=== PATIENT | female | born 1995 | race Caucasian/White ===

== ENCOUNTER 2025-02-13 13:00 | Outpatient (RCR) | payer MEDICAID, SELFPAY ==
--- NOTE | 2025-01-19 14:22 | PTNOTE_ITS ---
PT OP Initial Eval Patient Information Outpatient Physical Therapy Treatment Date: 01/19/25 Visit Reasons: bilateral hip pain Medical Diagnosis: Bilateral Hip Pain Treatment Dx #1: Bilateral Hip Pain Start of Care: 01/19/25 Date of Onset: Age 17 Smoking Status Smoking Status: Never smoker Initial Assessment Subjective: Pt is a 29 y/o female reports of chronic bilateral hip pain (08/24). Pt denies of trauma, injury, or MVA in the past. Pt's pain is insidious onset and has been getting worse. Pt has limitation with walking, standing, chores, self care, taking care of her kids, lifting, and performing recreaitonal activities. Objective: Bilateral Hip AROM: all motions are WFL Hip MMTs: grossly 3+/5 Special Test (+) Tl (+) EMIR's (-) hip scour Muscle Length: Hs tightness Assessment: Pt demonstrate bilateral hip pain and mobility deficits leading to difficulty with ADLs. Pt will attempt physical therapy if pain persist Pt will be refer back to provider for further consultation Short Term and Registered Radiographer Goals 1) Increase bilateral hip AROM WNL in 6 wks to be able to perform chores 2) Decrease hip pain to in 2/10 in 6 wks to be able to perform chores 3) Increase hip MMTs grossly to 4/5 in 6 wks to be able to perform recreational activities 4) Improve hip flexibility WFL in 6 wks to be able to perform work duties Treatment Plan 1) Manual Therapy 2) Therapeutic Activities 3) Therapeutic Exercises 4) Modalities (ice, heat) Frequency and Duration: 2 x wk for 6 wks Certification Dates: 01/19/25 to 04/19/25 Procedure Charges OP PT Eval Mod Complex 30 minutes: Yes
--- NOTE | 2025-01-24 13:33 | PT.ODAYNRPT ---
PT Outpatient Daily Note OP Daily Note Outpatient Physical Therapy Treatment Date: 01/24/25 Visit Reasons: bilateral hip pain Subjective: Pt's hips still hurt and feels about the same. Objective: Please see flow chart for list of ther ex performed Assessment: patient was pace throughout PT session and tolerated exercises Plan: Continue with PT Length of Time (minutes) of Treatment: 30 Minutes Procedure Charges Therapeutic Exercise 30 minutes: Yes
--- NOTE | 2025-01-30 09:56 | PT.ODAYNRPT ---
PT Outpatient Daily Note OP Daily Note Outpatient Physical Therapy Treatment Date: 01/30/25 Visit Reasons: bilateral hip pain Subjective: Pt's hip was not sore after last treatment session. Overall hips has been alright . Objective: Please see flow chart for list of ther ex performed Assessment: progressing with hip stretches with good tolerance. slight difficulty with hip fall out using RTB, however, able to complete instructed reps Plan: Continue with PT Length of Time (minutes) of Treatment: 30 Minutes Procedure Charges Therapeutic Exercise 30 minutes: Yes
--- NOTE | 2025-02-05 13:37 | PT.ODAYNRPT ---
PT Outpatient Daily Note OP Daily Note Outpatient Physical Therapy Treatment Date: 02/05/25 Visit Reasons: bilateral hip pain Subjective: Pt feels that physical therapy is helping a little. Pt mentioned she can move with less pain but needs to stretch the hips more to see if stretching is truly helping the hip pain Objective: Please see flow chart for list of ther ex performed Assessment: added ytb to side step and monster walk with minimal pain reported. Pt is progressing with resistance exercises Plan: Continue with PT Length of Time (minutes) of Treatment: 30 Minutes Procedure Charges Therapeutic Exercise 30 minutes: Yes
--- NOTE | 2025-02-13 13:41 | PT.ODAYNRPT ---
PT Outpatient Daily Note OP Daily Note Outpatient Physical Therapy Treatment Date: 02/13/25 Visit Reasons: bilateral hip pain Subjective: Pt been noticing less pain in the hips. Pt will like to try a few more sessions of physical therapy prior to returning to PCP for a MRI Objective: Please see flow chart for list of ther ex performed Assessment: progressing patient to more hip strengthening and stability exercises with good tolerance. Plan: Continue with PT Length of Time (minutes) of Treatment: 30 Minutes Procedure Charges Therapeutic Exercise 30 minutes: Yes
== END 2025-02-14 23:59 | disposition home or self-care (01) ==
LOC: CPTX 13:00
PROVIDERS: PCP Physician Assistant; Referring Provider Physician Assistant; Visit Provider Physician Assistant
DX: M25.552 Pain in left hip (principal); M25.551 Pain in right hip; R26.2 Difficulty in walking, not elsewhere classified; G89.29 Other chronic pain
CPT/HCPCS: 97110; 97162